=== PATIENT | female | born 1985 | race Caucasian/White ===

== ENCOUNTER → 2020-03-22 | Outpatient (CLI) | payer OTHER | LOC: COL.LAB | DX: Z01.812 Encounter for preprocedural laboratory examination (principal); M25.78 Osteophyte, vertebrae; M50.122 Cervical disc disorder at C5-C6 level with radiculopathy ==

== ENCOUNTER → 2020-05-24 | Outpatient (CLI) | payer OTHER | LOC: COL.RAD 15:08 | DX: Z96.9 Presence of functional implant, unspecified (principal); Z98.1 Arthrodesis status; Z98.890 Other specified postprocedural states ==